=== PATIENT | female | born 1980 ===

== ENCOUNTER 2022-04-24 06:00 | Day surgery (SDC) | payer OTHER ==
[2022-04-24] MEDS ORDERED: Dexmedetomidine 200 MCG/2 ML SDV ONE (07:38)
[2022-04-24] MEDS ORDERED: fentaNYL 100 MCG/2 ML SDV ONE (07:38)
[2022-04-24] MEDS ORDERED: Water For Injection, Sterile 20 ML ONE (07:38)
[2022-04-24] MEDS ORDERED: Propofol 200 MG/20 ML SDV ONE (07:38)
[2022-04-24] MEDS ORDERED: Bupivacaine 0.5% 30 ML SDV ONE (07:45)
[2022-04-24] MEDS ORDERED: Lactated Ringers 1,000 ML IV ONE (08:00)
[2022-04-24] MEDS ORDERED: Dexamethasone 4 MG/ML 5 ML MDV ONE (08:14)
[2022-04-24] MEDS ORDERED: Magnesium Sulfate (4.06 MEQ/ML) 5 GM/10 ML SDV ONE (08:16)
[2022-04-24] MEDS ORDERED: ePHEDrine 50 MG/ML SDV ONE (08:34)
[2022-04-24] MEDS ORDERED: Phenylephrine HCl In 0.9% NaCl 1 MG/10 ML Vial ONE (08:49)
[2022-04-24] MEDS ORDERED: Ketorolac 30 MG/ML SDV ONE (09:27)
[2022-04-24] MEDS ORDERED: Ondansetron 4 MG/2 ML SDV ONE (09:27)
== END 2022-04-24 11:14 ==
LOC: MW.SDS 06:00
PROVIDERS: ATTEND Surgery
DX: D17.22 Benign lipomatous neoplasm of skin and subcutaneous tissue of left arm (principal); D17.21 Benign lipomatous neoplasm of skin and subcutaneous tissue of right arm; Z88.8 Allergy status to other drugs, medicaments and biological substances; Z98.890 Other specified postprocedural states; Z87.891 Personal history of nicotine dependence; Z80.0 Family history of malignant neoplasm of digestive organs
CPT/HCPCS: 25075; J0131; J1100; J1885; J2405; J2704; J3010; J3475; J3490; J7120; 00400